=== PATIENT | male | born 1990 | race African-American/Black ===

== ENCOUNTER 2019-03-25 13:14 | Emergency (ER) | payer OTHER ==
[~2019-03-25] VITALS: Ht 185.4 cm; Wt 95.3 kg
[2019-03-25 13:27] VITALS: BP 160/102
--- NOTE | 2019-03-25 13:51 | PHYS DOC ---
Past History Past Medical History: No Pertinent History Past Surgical History: No Surgical History Alcohol Use: Occasionally Drug Use: None Adult General Chief Complaint Chief Complaint: LACERATION/AVULSION [facility] HPI Patient is a 28 year old male who presents with complaining of laceration. Patient states he reports his left eye while playing basketball and had a superficial laceration below his left eyebrow without other injuries or loss of consciousness. Patient rated his pain as a moderate pain and denies nausea vomiting, focal neuro deficit, blurred vision, fever and chills. Patient is up-to-date with tetanus immunization. Review of Systems Review of Systems Constitutional: Denies fever or chills [] Eyes: Denies change in visual acuity, redness, or eye pain [] HENT: Denies nasal congestion or sore throat [] Respiratory: Denies cough or shortness of breath [] Cardiovascular: No additional information not addressed in HPI [] GI: Denies abdominal pain, nausea, vomiting, bloody stools or diarrhea [] : Denies dysuria or hematuria [] Musculoskeletal: Denies back pain or joint pain [] Integument: Denies rash or skin lesions, reports laceration Neurologic: Denies headache, focal weakness or sensory changes [] Endocrine: Denies polyuria or polydipsia [] All other systems were reviewed and found to be within normal limits, except as documented in this note. Allergies Allergies Allergies Coded Allergies Type Severity Reaction Last Updated Verified No Known Drug Allergies 03/25/19 No Physical Exam Physical Exam Constitutional: Well developed, well nourished, no acute distress, non-toxic appearance. [] HENT: Normocephalic, 1.5 cm superficial laceration below left eyebrow without active bleeding with 2 or 3 mm gap between edge e of the wound, bilateral external ears normal, oropharynx moist, no oral exudates, nose normal. [] Eyes: PERRLA, EOMI, conjunctiva normal, no discharge. [] Neck: Normal range of motion, no tenderness, supple, no stridor. [] Cardiovascular:Heart rate regular rhythm, no murmur [] Lungs & Thorax: Bilateral breath sounds clear to auscultation [] Neurologic: Alert and oriented X 3, normal motor function, normal sensory function, no focal deficits noted. [] Psychologic: Affect normal, judgement normal, mood normal. [] Current Patient Data Vital Signs Vital Signs Date Time Temp Pulse Resp B/P (MAP) Pulse Ox O2 Delivery O2 Flow Rate FiO2 03/25/19 13:27 98.1 82 16 96 Room Air EKG EKG [] Radiology/Procedures Radiology/Procedures [] Course & Med Decision Making Course & Med Decision Making Pertinent Labs and Imaging studies reviewed. (See chart for details) [] Dragon Disclaimer Dragon Disclaimer This electronic medical record was generated, in whole or in part, using a voice recognition dictation system. Departure Departure: Impression: Primary Impression: Facial laceration Disposition: HOME, SELF-CARE (@1350) Condition: IMPROVED Referrals: GEORGINA MELARA DO (PCP) Patient Instructions: Facial Laceration, Tissue Adhesive Wound Care Additional Instructions: Drink plenty of liquids Follow-up with your primary care physician in 3-5 days Return to ER if not getting better Laceration Repair Lac Repair Indication: [Facial laceration] Procedure: The patient was placed in the appropriate position and 1.5 cm superficial laceration of left eyebrow was repaired fifth Dermabond and Steri- Strip. Total repaired wound length: 1.5 cm Other Items: None The patient tolerated the procedure well. Complications: None. Problem Qualifiers Primary Impression: Facial laceration Encounter type: initial encounter Qualified Codes: S01.81XA - Laceration without foreign body of other part of head, initial encounter JOSÉ MIGUEL SALGADO MD Mar 25, 2019 13:51
== END 2019-03-25 13:56 | disposition home or self-care (01) ==
LOC: ER 13:14
DX: S01.112A Laceration without foreign body of left eyelid and periocular area, initial encounter (principal); W51.XXXA Accidental striking against or bumped into by another person, initial encounter; Y93.67 Activity, basketball; Y92.89 Other specified places as the place of occurrence of the external cause; Y99.8 Other external cause status
CPT/HCPCS: 12011; 99283

== ENCOUNTER 2019-03-26 21:16 | Emergency (ER) | payer OTHER ==
[2019-03-26 21:39] VITALS: BP 147/79
--- NOTE | 2019-03-26 22:04 | PHYS DOC ---
Past History Past Medical History: No Pertinent History Past Surgical History: No Surgical History Alcohol Use: Occasionally Drug Use: None Adult General Chief Complaint Chief Complaint: EYE PROBLEMS HPI HPI Patient is a [age] year old [sex] who presents with [] Review of Systems Review of Systems Constitutional: Denies fever or chills [] Eyes: Denies change in visual acuity, redness, or eye pain [] HENT: Denies nasal congestion or sore throat [] Respiratory: Denies cough or shortness of breath [] Cardiovascular: No additional information not addressed in HPI [] GI: Denies abdominal pain, nausea, vomiting, bloody stools or diarrhea [] : Denies dysuria or hematuria [] Musculoskeletal: Denies back pain or joint pain [] Integument: Denies rash or skin lesions [] Neurologic: Denies headache, focal weakness or sensory changes [] Endocrine: Denies polyuria or polydipsia [] All other systems were reviewed and found to be within normal limits, except as documented in this note. Allergies Allergies Allergies Coded Allergies Type Severity Reaction Last Updated Verified No Known Drug Allergies 03/25/19 No Physical Exam Physical Exam Constitutional: Well developed, well nourished, no acute distress, non-toxic sin earance. [] HENT: Normocephalic, atraumatic, bilateral external ears normal, oropharynx moist, no oral exudates, nose normal. [] Eyes: PERRLA, EOMI, conjunctiva normal, no discharge. [] Neck: Normal range of motion, no tenderness, supple, no stridor. [] Cardiovascular:Heart rate regular rhythm, no murmur [] Lungs & Thorax: Bilateral breath sounds clear to auscultation [] Abdomen: Bowel sounds normal, soft, no tenderness, no masses, no pulsatile masses. [] Skin: Warm, dry, no erythema, no rash. [] Back: No tenderness, no CVA tenderness. [] Extremities: No tenderness, no cyanosis, no clubbing, ROM intact, no edema. [] Neurologic: Alert and oriented X 3, normal motor function, normal sensory function, no focal deficits noted. [] Psychologic: Affect normal, judgement normal, mood normal. [] Current Patient Data Vital Signs Vital Signs Date Time Temp Pulse Resp B/P (MAP) Pulse Ox O2 Delivery O2 Flow Rate FiO2 03/26/19 21:39 98.3 56 20 98 Room Air EKG EKG [] Radiology/Procedures Radiology/Procedures [] Course & Med Decision Making Course & Med Decision Making Pertinent Labs and Imaging studies reviewed. (See chart for details) [] Dragon Disclaimer Dragon Disclaimer This electronic medical record was generated, in whole or in part, using a voice recognition dictation system. Departure Departure: Impression: Primary Impression: Traumatic hematoma of left eyelid Disposition: HOME, SELF-CARE Condition: STABLE Referrals: GEORGINA MELARA DO (PCP) Patient Instructions: Hematoma, [id number] Additional Instructions: ICE area 20 min on then keep off for next 20 min as much as possible over the next few days. Use over the counter Tylenol and Ibuprofen for pain/discomfort. Problem Qualifiers Primary Impression: Traumatic hematoma of left eyelid Encounter type: subsequent encounter Qualified Codes: S00.12XD - Contusion of left eyelid and periocular area, subsequent encounter KARIE JEWELL DO Mar 26, 2019 22:04
== END 2019-03-26 22:27 | disposition home or self-care (01) ==
LOC: ER 21:16
DX: S00.12XD Contusion of left eyelid and periocular area, subsequent encounter (principal); W51.XXXD Accidental striking against or bumped into by another person, subsequent encounter
CPT/HCPCS: 99281

== ENCOUNTER 2019-03-30 16:09 | Emergency (ER) | payer OTHER ==
[~2019-03-30] VITALS: Ht 185.4 cm; Wt 97.7 kg
[2019-03-30 16:25] VITALS: BP 124/83
--- NOTE | 2019-03-30 16:42 | PHYS DOC ---
Past History Past Medical History: No Pertinent History Past Surgical History: No Surgical History Smoking: Non-smoker Alcohol Use: Occasionally Drug Use: None Adult General Chief Complaint Chief Complaint: WOUND CHECK HPI HPI Patient is a 28-year-old male presents after exposure to herpes virus yesterday. 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 He may have touched a recent wound over his left eye. He notes that the wound over his left eye came open this morning. Denies any drainage. Denies any change in vision. He reports feeling "dirty." He denies any mucous membrane contact. Denies any needle stick injury. Symptoms are mild.[] Review of Systems Review of Systems Constitutional: Denies fever or chills [] Eyes: Denies change in visual acuity, redness, or eye pain [] HENT: Denies nasal congestion or sore throat [] Respiratory: Denies cough or shortness of breath [] Cardiovascular: No chest pain or palpitations[] GI: Denies abdominal pain, nausea, vomiting, bloody stools or diarrhea [] : Denies dysuria or hematuria [] Musculoskeletal: Denies back pain or joint pain [] Integument: Denies rash or skin lesions [] Neurologic: Denies headache, focal weakness or sensory changes [] Endocrine: Denies polyuria or polydipsia [] All other systems were reviewed and found to be within normal limits, except as documented in this note. Allergies Allergies Allergies Coded Allergies Type Severity Reaction Last Updated Verified No Known Drug Allergies 03/25/19 No Physical Exam Physical Exam Constitutional: Well developed, well nourished, no acute distress, non-toxic appearance. [] HENT: Normocephalic, atraumatic, bilateral external ears normal, oropharynx moist, no oral exudates, nose normal. [] Eyes: PERRLA, EOMI, conjunctiva normal, no discharge. Left lateral upper eyelid region has a 1.5-2 cm laceration that appears to be scabbed over. [] Neck: Normal range of motion, no tenderness, supple, no stridor. [] Cardiovascular:Heart rate regular rhythm, no murmur [] Lungs & Thorax: Bilateral breath sounds clear to auscultation [] Abdomen: Not examined[] Skin: Warm, dry, no erythema, no rash. [] Back: No tenderness, no CVA tenderness. [] Extremities: No tenderness, no cyanosis, no clubbing, ROM intact, no edema. [] Neurologic: Alert and oriented X 3, normal motor function, normal sensory function, no focal deficits noted. [] Psychologic: Affect normal, judgement normal, mood normal. [] Current Patient Data Vital Signs Vital Signs Date Time Temp Pulse Resp B/P (MAP) Pulse Ox O2 Delivery O2 Flow Rate FiO2 03/30/19 16:25 98.1 74 16 96 Room Air EKG EKG [] Radiology/Procedures Radiology/Procedures [] Course & Med Decision Making Course & Med Decision Making Pertinent Labs and Imaging studies reviewed. (See chart for details) ED course: Patient arrived, was placed in bed, and tolerated exam well. Hepatitis panel and HIV were drawn. Consultation was made with infectious disease. Dr. Smith from [place] graciously called back. Recommendation was to start patient on acyclovir. Discussed findings and plan with patient. All questions were answered. Patient was discharged in improved condition. Medical decision making: Do not see any need for HIV postexposure prophylaxis at this time. Will place patient on antiviral therapy for the herpes virus. The wound appears to be healing appropriately of his left eyelid. Do not believe that any additional treatment is required at this time. No evidence of an acute infection.[] Dragon Disclaimer Dragon Disclaimer This electronic medical record was generated, in whole or in part, using a voice recognition dictation system. Departure Departure: Impression: Primary Impression: Exposure to herpes Additional Impression: Encounter for wound re-check Disposition: 01 HOME, SELF-CARE Condition: IMPROVED Referrals: GEORGINA MELARA DO (PCP) Follow-up tomorrow Patient Instructions: Herpes Simplex, Wound Check Additional Instructions: Follow-up with your regular doctor tomorrow. Keep the wound clean and dry. Take the medication as prescribed. Return to the ER if and drainage, fever of more t brady 101�, or any other concerns. Scripts Acyclovir (ACYCLOVIR) 400 Mg Tablet 1 TAB PO TID for HSV exposure, #30 TAB Prov: LISSETH SCOTT DO 03/30/19 Problem Qualifiers LISSETH SCOTT DO Mar 30, 2019 16:42
[2019-03-30] MEDS ORDERED: ACYC400T PO (16:53)
== END 2019-03-30 17:00 | disposition home or self-care (01) ==
LOC: ER 16:09
DX: S01.112D Laceration without foreign body of left eyelid and periocular area, subsequent encounter (principal); Z22.4 Carrier of infections with a predominantly sexual mode of transmission; X58.XXXD Exposure to other specified factors, subsequent encounter
CPT/HCPCS: 86703; 86705; 86709; 86803; 87340; 99284

== ENCOUNTER 2019-05-28 11:27 | Emergency (ER) | payer OTHER ==
[~2019-05-28] VITALS: Ht 185.4 cm; Wt 97.7 kg
[~2019-05-28 11:27] MED LIST: ACYC400T PO
[2019-05-28 11:42] VITALS: BP 151/82
[2019-05-28] MEDS ORDERED: MELO7.5T29 PO (11:49)
--- NOTE | 2019-05-28 11:49 | PHYS DOC ---
Past History Past Medical History: No Pertinent History Past Surgical History: No Surgical History Smoking: Non-smoker Alcohol Use: Occasionally Drug Use: None Adult General Chief Complaint Chief Complaint: SEXUALLY TRANSMITTED DISEASE HPI HPI Patient is a 29-year-old male presents after being informed by a partner that she tested positive for chlamydia. His last sexual intercourse with that partner was approximately 2 weeks ago. Patient denies any rashes, dysuria, nor urethral discharge. He notes some region discomfort but this was present previous to the sexual intercourse. He reports he does a lot of work lifting as well as working out at the gym and attributed the discomfort to that. No increased testicular pain. Nothing makes the discomfort better or worse. Discomfort is mild. He reports he was only sexually active with that one partner. No other partners in the intervening time.[] Review of Systems Review of Systems Constitutional: Denies fever or chills [] Eyes: Denies change in visual acuity, redness, or eye pain [] HENT: Denies nasal congestion or sore throat [] Respiratory: Denies cough or shortness of breath [] Cardiovascular: No chest pain or palpitations[] GI: Denies abdominal pain, nausea, vomiting, bloody stools or diarrhea [] : Denies dysuria or hematuria, see history of present illness [] Musculoskeletal: Denies back pain or joint pain [] Integument: Denies rash or skin lesions [] Neurologic: Denies headache, focal weakness or sensory changes [] Endocrine: Denies polyuria or polydipsia [] All other systems were reviewed and found to be within normal limits, except as documented in this note. Allergies Allergies Allergies Uncoded Allergies Type Severity Reaction Last Updated Verified Seafood Allergy Unknown 05/28/19 Physical Exam Physical Exam Constitutional: Well developed, well nourished, no acute distress, non-toxic appearance. [] HENT: Normocephalic, atraumatic, bilateral external ears normal, oropharynx moist, no oral exudates, nose normal. [] Eyes: PERRLA, EOMI, conjunctiva normal, no discharge. [] Neck: Normal range of motion, no tenderness, supple, no stridor. [] Cardiovascular:Heart rate regular rhythm, no murmur [] Lungs & Thorax: Bilateral breath sounds clear to auscultation [] Abdomen: Bowel sounds normal, soft, no tenderness, no masses, no pulsatile masses. exam: Normal male with bilateral descended testes. He is circumcised. No urethral discharge. There are no lesions or rash. No epididymal tenderness. No hernia. [] Skin: Warm, dry, no erythema, no rash. [] Back: No tenderness, no CVA tenderness. [] Extremities: No tenderness, no cyanosis, no clubbing, ROM intact, no edema. [] Neurologic: Alert and oriented X 3, normal motor function, normal sensory function, no focal deficits noted. [] Psychologic: Affect normal, judgement normal, mood normal. [] EKG EKG [] Radiology/Procedures Radiology/Procedures [] Course & Med Decision Making Course & Med Decision Making Pertinent Labs and Imaging studies reviewed. (See chart for details) ED course: Patient arrived, was placed in bed, and tolerated exam well. Urine is being sent for evaluation for gonorrhea and chlamydia. He is being empirically treated. He was discharged in improved condition with all questions answered. Patient deferred HIV testing at this time.[] Dragon Disclaimer Dragon Disclaimer This electronic medical record was generated, in whole or in part, using a voice recognition dictation system. Departure Departure: Impression: Primary Impression: Exposure to STD Disposition: HOME, SELF-CARE Condition: IMPROVED Referrals: GEORGINA MELARA DO (PCP) Follow-up in 2 days Patient Instructions: Chlamydia Test, Gonorrhea Culture Additional Instructions: Follow-up with your regular doctor in 2 days. Return to the ER if worsening pain, fever of more than 101�, or any other concerns. Scripts Meloxicam (MELOXICAM) 7.5 Mg Tablet 7.5 MG PO DAILY for PAIN, #20 TAB Prov: LISSETH SCOTT DO 05/28/19 LISSETH SCOTT DO May 28, 2019 11:49
[2019-05-28] MEDS ORDERED: AZITHROMYCIN 250 MG TABLET. PO ONE (12:00)
[2019-05-28] MEDS ORDERED: cefTRIAXone IM 250 MG VIAL IM ONE (12:00)
[2019-05-28 12:09] LABS: BILIRUBIN,URINE NEG (NEG); CLARITY,URINE CLEAR; COLOR,URINE YELLOW; GLUCOSE,URINE NEG (NEG)
[2019-05-28 12:10] LABS: BACTERIA,URINE 0 /HPF (0-FEW); NITRITE,URINE NEG (NEG); RBC,URINE 0 /HPF (0-2); SQUAMOUS EPITHELIAL CELL,UR FEW /LPF; UROBILINOGEN,URINE 0.2 mg/dL (0.2 mg/dL)
== END 2019-05-28 12:02 | disposition home or self-care (01) ==
LOC: ER 11:27
DX: Z20.2 Contact with and (suspected) exposure to infections with a predominantly sexual mode of transmission (principal); Z91.041 Radiographic dye allergy status
CPT/HCPCS: 36415; 81001; 87491; 87591; 96372; 99284; J0456; J0696

== ENCOUNTER 2019-08-09 06:01 | Emergency (ER) | payer OTHER ==
[~2019-08-09] VITALS: Ht 185.4 cm; Wt 97.7 kg
[~2019-08-09 06:01] MED LIST changes: +MELO7.5T29 PO
[2019-08-09 06:10] VITALS: BP 151/80
[2019-08-09] MEDS ORDERED: PROM118S9 PO (06:29)
[2019-08-09] MEDS ORDERED: IBUP800T19 PO (06:29)
--- NOTE | 2019-08-09 06:29 | PHYS DOC ---
Past History Past Medical History: No Pertinent History Past Surgical History: No Surgical History Smoking: Non-smoker Alcohol Use: Rarely Drug Use: None Adult General Chief Complaint Chief Complaint: FEVER HPI HPI Patient is a 29-year-old male presents with a fever for the past 5 days that has been waxing and waning. Highest temperature was 2-3 days ago at 101.3. He has had a cough and nasal congestion. His daughter was diagnosed with influenza last week and was placed on Tamiflu. No family members were placed on Tamiflu. No nausea, vomiting, or diarrhea. Patient does note that he has lost 10-15 pounds over the past 5 days. Denies any production of sputum with the cough. No shaking chills.[] Review of Systems Review of Systems Constitutional: See history of present illness[] Eyes: Denies change in visual acuity, redness, or eye pain [] HENT: Denies ear pain or sore throat, see history of present illness [] Respiratory: Denies shortness of breath, see history of present illness [] Cardiovascular: No chest pain or palpitations[] GI: Denies abdominal pain, nausea, vomiting, bloody stools or diarrhea [] : Denies dysuria or hematuria [] Musculoskeletal: Denies back pain or joint pain [] Integument: Denies rash or skin lesions [] Neurologic: Denies headache, focal weakness or sensory changes [] Endocrine: Denies polyuria or polydipsia [] All other systems were reviewed and found to be within normal limits, except as documented in this note. Allergies Allergies Allergies Coded Allergies Type Severity Reaction Last Updated Verified shellfish derived Allergy Unknown 08/09/19 Yes Uncoded Allergies Type Severity Reaction Last Updated Verified Seafood Allergy Unknown 05/28/19 Physical Exam Physical Exam Constitutional: Well developed, well nourished, no acute distress, non-toxic appearance. [] HENT: Normocephalic, atraumatic, bilateral external ears normal, oropharynx moist, no oral exudates, nose with clear rhinorrhea, posterior pharyngeal streaking is present. [] Eyes: PERRLA, EOMI, conjunctiva normal, no discharge. [] Neck: Normal range of motion, no tenderness, supple, no stridor. [] Cardiovascular:Heart rate regular rhythm, no murmur [] Lungs & Thorax: Bilateral breath sounds clear to auscultation, no Rales, no rhonchi, no wheezes [] Abdomen: Bowel sounds normal, soft, no tenderness, no masses, no pulsatile masses. [] Skin: Warm, dry, no erythema, no rash. [] Back: No tenderness, no CVA tenderness. [] Extremities: No tenderness, no cyanosis, no clubbing, ROM intact, no edema. [] Neurologic: Alert and oriented X 3, normal motor function, normal sensory function, no focal deficits noted. [] Psychologic: Affect normal, judgement normal, mood normal. [] EKG EKG [] Radiology/Procedures Radiology/Procedures [] Course & Med Decision Making Course & Med Decision Making Pertinent Labs and Imaging studies reviewed. (See chart for details) ED course: Patient arrived, was placed in bed, and tolerated exam well. Findings and plan were discussed with the patient who voiced understanding. All que stions were answered. He was discharged in improved condition. Medical decision making: Patient may have a flu syndrome, however since the symptoms of been present for the past 5 days, Tamiflu is not indicated since it is not within 48 hours of onset of symptoms. Therefore, since it would not change treatment, no influenza testing is being performed. There is no evidence of pneumonia, no hypoxia, nontoxic patient. We'll provide symptomatic relief for the nasal congestion and fever management as needed.[] Dragon Disclaimer Dragon Disclaimer This electronic medical record was generated, in whole or in part, using a voice recognition dictation system. Departure Departure: Impression: Primary Impression: Febrile illness, acute Disposition: 01 HOME, SELF-CARE Condition: IMPROVED Referrals: PCP,UNKNOWN (PCP) Patient Instructions: Fever, Adult, Influenza, Adult, Upper Respiratory Infection, Adult Additional Instructions: Drink plenty of fluids. Follow-up with your regular doctor in 2 days. If you do not have regular doctor list of local clinics will be provided. Take the medication as prescribed, as needed. Return to the ER if difficulty breathing, or any other concerns. Scripts Ibuprofen (IBUPROFEN) 800 Mg Tablet 1 TAB PO TID for pain or fever, #30 TAB Prov: LISSETH SCOTT DO 08/09/19 D-Methorphan Hb/Prometh Hcl (PROMETHAZINE-DM SYRUP) 118 Ml Syrup 5 ML PO PRN Q4HRS for cough and congestion, #120 ML Prov: LISSETH SCOTT DO 08/09/19 LISSETH SCOTT DO Aug 09, 2019 06:29
== END 2019-08-09 06:35 | disposition home or self-care (01) ==
LOC: ER 06:01
DX: R50.9 Fever, unspecified (principal); R09.81 Nasal congestion; R05 Cough; Z91.013 Allergy to seafood
CPT/HCPCS: 99283

== ENCOUNTER 2019-08-09 16:38 | Emergency (ER) | payer OTHER ==
[~2019-08-09] VITALS: Ht 185.4 cm; Wt 97.7 kg
[~2019-08-09 16:38] MED LIST changes: +IBUP800T19 PO; +PROM118S9 PO
[2019-08-09 16:47] VITALS: BP 133/52
[2019-08-09] MEDS ORDERED: KETOROLAC 30 MG/ML VIAL. IM ONE (17:00)
--- NOTE | 2019-08-09 17:10 | PHYS DOC ---
Past History Past Medical History: No Pertinent History Past Surgical History: No Surgical History Smoking: Non-smoker Alcohol Use: Heavy Drug Use: None Adult General Chief Complaint Chief Complaint: FOOT INJURY PAIN HPI HPI Patient is a 29-year-old male presents with left ankle pain after an inversion mechanism injury approximately 1300 today. He was playing basketball to sweat out his fever for which he was seen earlier today. When jumping he landed on another players foot/leg. He has been able to walk on it. There is pain and swelling in the outer part of the ankle. No knee pain. No numbness or tingling. No home medicines have been taken for this. No previous history of ankle injury. Pain is moderate in intensity.[] Review of Systems Review of Systems Constitutional: He has been having fever for which she was seen in the emergency department earlier today.[] Eyes: Denies change in visual acuity, redness, or eye pain [] HENT: Denies ear pain or or sore throat [] Respiratory: Denies productive cough or shortness of breath [] Cardiovascular: No chest pain or palpitations[] GI: Denies abdominal pain, nausea, vomiting, bloody stools or diarrhea [] : Denies dysuria or hematuria [] Musculoskeletal: Denies back pain, see history of present illness[] Integument: Denies rash or skin lesions [] Neurologic: Denies headache, focal weakness or sensory changes [] Endocrine: Denies polyuria or polydipsia [] All other systems were reviewed and found to be within normal limits, except as documented in this note. Allergies Allergies Allergies Coded Allergies Type Severity Reaction Last Updated Verified shellfish derived Allergy Unknown 08/09/19 Yes Uncoded Allergies Type Severity Reaction Last Updated Verified Seafood Allergy Unknown 05/28/19 Physical Exam Physical Exam Constitutional: Well developed, well nourished, mild discomfort, non-toxic appearance. [] HENT: Normocephalic, atraumatic, bilateral external ears normal, oropharynx moist, no oral exudates, nose normal. [] Eyes: PERRLA, EOMI, conjunctiva normal, no discharge. [] Neck: Normal range of motion, no tenderness, supple, no stridor. [] Cardiovascular:Heart rate regular rhythm, no murmur [] Lungs & Thorax: Bilateral breath sounds clear to auscultation [] Abdomen: Not examined. [] Skin: Warm, dry, no erythema, no rash. [] Back: No tenderness, no CVA tenderness. [] Extremities: Left ankle has swelling and tenderness over the lateral malleolus. No base of the fifth metatarsal tenderness. No knee tenderness. Full active range of motion of the ankle. No laxity. He is distally neurovascularly intact. A joint above and a joined below were evaluated and were normal. The other 3 extremities show: No tenderness, no cyanosis, no clubbing, ROM intact, no edema. [] Neurologic: Alert and oriented X 3, normal motor function, normal sensory function, no focal deficits noted. [] Psychologic: Affect normal, judgement normal, mood normal. [] Current Patient Data Vital Signs Vital Signs Date Time Temp Pulse Resp B/P (MAP) Pulse Ox O2 Delivery O2 Flow Rate FiO2 08/09/19 16:47 98.7 77 18 100 Room Air EKG EKG [] Radiology/Procedures Radiology/Procedures Three-view radiographs of the left ankle show no evidence of a fracture or dislocation. There is swelling over the lateral malleolus.[] Course & Med Decision Making Course & Med Decision Making Pertinent Labs and Imaging studies reviewed. (See chart for details) Emergency department course: Patient arrived, was placed in bed, and tolerated exam well. He was transported to and from radiology with any complications. After return of the imaging findings, these were discussed with the patient. He was placed in air splint. He was distally neurovascularly intact after the splint application. He was discharged in improved condition with all questions answered. Medical decision making: There is no evidence of a fracture or dislocation. No evidence of neurologic or vascular compromise. There is swelling so unable to assess for significant edematous laxity.[] Dragon Disclaimer Dragon Disclaimer This electronic medical record was generated, in whole or in part, using a voice recognition dictation system. Departure Departure: Impression: Primary Impression: Moderate left ankle sprain Disposition: 01 HOME, SELF-CARE Condition: IMPROVED Referrals: PCP,UNKNOWN (PCP) Patient Instructions: Ankle Sprain Additional Instructions: Follow-up with your regular doctor in 2 days. Take the previously prescribed ibuprofen as prescribed, as needed for pain or fever. Return to the ER if worsening pain, weakness, or any other concerns. Problem Qualifiers Primary Impression: Moderate left ankle sprain Encounter type: initial encounter Qualified Codes: S93.402A - Sprain of unspecified ligament of left ankle, initial encounter LISSETH SCOTT DO Aug 09, 2019 17:10
--- NOTE | 2019-08-09 18:21 | RAD ---
Left ankle x-rays 3 views HISTORY: Left ankle pain and swelling. FINDINGS: Lateral ankle soft tissue swelling. Small os peroneus. No fracture. No dislocation. No talus osteochondral lesion. IMPRESSION: No acute osseous injury. Lateral ankle soft tissue swelling. Electronically signed by: Fredrick Stevenson MD (08/09/2019 6:18 PM) [id number]
== END 2019-08-09 17:48 | disposition home or self-care (01) ==
LOC: ER 16:38
DX: S93.402A Sprain of unspecified ligament of left ankle, initial encounter (principal); Z91.013 Allergy to seafood; X50.9XXA Other and unspecified overexertion or strenuous movements or postures, initial encounter; Y93.67 Activity, basketball; Y92.89 Other specified places as the place of occurrence of the external cause; Y99.8 Other external cause status
CPT/HCPCS: 73610; 96372; 99284; J1885

== ENCOUNTER 2019-08-30 00:56 | Emergency (ER) | payer OTHER ==
[~2019-08-30] VITALS: Ht 182.9 cm; Wt 98.6 kg
[2019-08-30 01:15] VITALS: BP 141/88
--- NOTE | 2019-08-30 01:38 | PHYS DOC ---
Past History Past Medical History: No Pertinent History Past Surgical History: No Surgical History Smoking: Non-smoker Additional Smoking Information: Social smoker Alcohol Use: Occasionally Drug Use: None Adult General Chief Complaint Chief Complaint: ANKLE PROBLEM HPI HPI 29-year-old male presents with left lateral ankle pain. 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 He was walking up some stairs when he felt pain in the left lateral ankle. Since that time, he has had 2 walk more carefully. He is able to walk. He denies rolling it or any direct trauma. He didn't roll the ankle playing basketball month or 2 ago. It hurt for about a week but resolved completely. No significant history of previous ankle problems. The ankle is swollen on the lateral side. He has put ice on it prior to coming to the emergency room. 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 He denies any other injuries or complaints. Review of Systems Review of Systems Constitutional: Denies fever or chills [] Eyes: Denies change in visual acuity, redness, or eye pain [] HENT: Denies nasal congestion or sore throat [] Respiratory: Denies cough or shortness of breath [] Cardiovascular: No additional information not addressed in HPI [] GI: Denies abdominal pain, nausea, vomiting, bloody stools or diarrhea [] : Denies dysuria or hematuria [] Musculoskeletal: Left lateral ankle pain[] Integument: Denies rash or skin lesions [] Neurologic: Denies headache, focal weakness or sensory changes [] Endocrine: Denies polyuria or polydipsia [] All other systems were reviewed and found to be within normal limits, except as documented in this note. Allergies Allergies Allergies Coded Allergies Type Severity Reaction Last Updated Verified shellfish derived Allergy Unknown 08/09/19 Yes Uncoded Allergies Type Severity Reaction Last Updated Verified Seafood Allergy Unknown 05/28/19 Physical Exam Physical Exam Constitutional: Well developed, well nourished, no acute distress, non-toxic appearance. [] HENT: Normocephalic, atraumatic, bilateral external ears normal, oropharynx moist, no oral exudates, nose normal. [] Eyes: PERRLA, EOMI, conjunctiva normal, no discharge. [] Neck: Normal range of motion, no tenderness, supple, no stridor. [] Cardiovascular:Heart rate regular rhythm, no murmur [] Lungs & Thorax: Bilateral breath sounds clear to auscultation [] Abdomen: Bowel sounds normal, soft, no tenderness, no masses, no pulsatile masses. [] Skin: Warm, dry, no erythema, no rash. [] Back: No tenderness, no CVA tenderness. [] Extremities: Tenderness over the left lateral malleolus, mild swelling, no ecchymosis or obvious deformity. Pain with inversion.[] Neurologic: Alert and oriented X 3, normal motor function, normal sensory function, no focal deficits noted. [] Psychologic: Affect normal, judgement normal, mood normal. [] Current Patient Data Vital Signs Vital Signs Date Time Temp Pulse Resp B/P (MAP) Pulse Ox O2 Delivery O2 Flow Rate FiO2 08/30/19 01:15 98.1 54 16 98 Room Air EKG EKG [] Radiology/Procedures Radiology/Procedures [] Impressions: Preliminary interpretation left ankle x-ray: No obvious fracture or dislocation. Course & Med Decision Making Course & Med Decision Making Pertinent Labs and Imaging studies reviewed. (See chart for details) The patient appears to have a left ankle sprain. I have advised supportive care with rest, ice, ibuprofen. He will determine with his superiors what to do about work. I believe it is reasonable for the patient to have a couple days off to see if it improves quickly. Tylenol and ibuprofen should be sufficient at home. He is stable for discharge at this time. [] Dragon Disclaimer Dragon Disclaimer This electronic medical record was generated, in whole or in part, using a voice recognition dictation system. Departure Departure: Impression: Primary Impression: Left ankle sprain Disposition: 01 HOME, SELF-CARE Condition: STABLE Referrals: PCP,NO (PCP) Patient Instructions: Ankle Sprain, Acute, with Phase I Rehab-SportsMed Problem Qualifiers Primary Impression: Left ankle sprain Encounter type: initial encounter Involved ligament of ankle: anterior talofibular ligament Qualified Codes: S93.492A - Sprain of other ligament of left ankle, initial encounter ALIREZA LIN DO Aug 30, 2019 01:38
--- NOTE | 2019-08-30 03:47 | RAD ---
ANKLE LEFT 3V DATE: 08/30/2019 1:12 AM INDICATION: Pain COMPARISON: None. FINDINGS: Bones: There is no evidence of acute fracture or dislocation. Joints: The ankle mortise is congruent. No widening of the distal tibiofibular syndesmosis. Miscellaneous: None. IMPRESSION: No evidence of acute fracture. Electronically signed by: Axel Johns MD (08/30/2019 3:44 AM) [id number]
== END 2019-08-30 01:50 | disposition home or self-care (01) ==
LOC: ER 00:56
DX: S93.492A Sprain of other ligament of left ankle, initial encounter (principal); Z91.041 Radiographic dye allergy status; X50.9XXA Other and unspecified overexertion or strenuous movements or postures, initial encounter; Y93.01 Activity, walking, marching and hiking; Y92.89 Other specified places as the place of occurrence of the external cause; Y99.8 Other external cause status
CPT/HCPCS: 73610; 99284